=== PATIENT | female | born 1985 | race Caucasian/White ===

== ENCOUNTER 2016-12-16 10:12 | Emergency (ER) | payer MEDICAID, OTHER ==
[~2016-12-16] VITALS: Ht 162.6 cm; Wt 58.0 kg
[~2016-12-16 10:12] MED LIST: ACET1TAB40 PO; IBUP-1542 PO; PNV1CAPS17 PO; PRED20TA PO
[2016-12-16 10:15] VITALS: Ht 162.6 cm; Wt 58.0 kg
[2016-12-16] MEDS ORDERED: SOD CHLORIDE 0.9% 1,000 ML IV STA (11:21)
[2016-12-16] MEDS ORDERED: HYDR25SU23 PR (13:35)
--- NOTE | 2016-12-16 13:36 | ERD ---
ER Documentation Chief Complaint Chief Complaint RECTAL BLEED X 3 DAYS , 10 WEEKS PREG , RT LOWER ABD PAIN HPI Patient is a 31-year-old female with hypertension who presents with rectal bleed. The patient has had a rectal bleed for the past few days. She is 10 weeks . The patient said that she passed out 2 months ago. The symptoms come and go. She denies hemorrhoids. She has pain in her anus. She has had no treatment as of yet. She denies vaginal bleeding or bleeding when she urinates. She is not on blood thinning medicines. She is a Ab2. Upon review of old medical records this is the patient's eighth visit to the ER since 2007. ROS All systems reviewed and are negative except as per history of present illness. Medications Home Meds Active Scripts Hydrocortisone Acetate (Anusol-Hc) 25 Mg Supp.rect, 1 SUPP AK QHS, #12 SUPP.RECT Prov:CHEMA MON MD 12/16/16 Acetaminophen-Codeine* (Acetaminophen-Cod #3*) 300-30 Mg Tab, 1 TAB PO Q4H Y for PAIN, #10 TAB Prov:NASEEM LOPES MD 07/03/15 Ibuprofen* (Motrin*) 600 Mg Tab, 600 MG PO Q6, #14 TAB Prov:NASEEM LOPES MD 07/03/15 Prednisone* (Prednisone*) 20 Mg Tab, 40 MG PO DAILY for 4 Days, TAB Prov:NASEEM LOPES MD 07/03/15 Reported Medications Pnv Comb.no58/Iron Bisgly/Fa ( Capsule) 1 Each Capsule, 1 EACH PO DAILY 05/05/13 Allergies Allergies: Coded Allergies: No Known Drug Allergies (Verified Allergy, Unknown, 07/03/15) PMhx/Soc History of Surgery: No Anesthesia Reaction: No Hx Neurological Disorder: No Hx Respiratory Disorders: No Hx Cardiac Disorders: Yes (HTN) Hx Psychiatric Problems: No Hx Miscellaneous Medical Probl: No Hx Alcohol Use: No Hx Substance Use: No Hx Tobacco Use: Yes Smoking Status: Former smoker FmHx Family History: diabetes Physical Exam Vitals Vital Signs Date Time Temp Pulse Resp B/P Pulse Ox O2 Delivery O2 Flow Rate FiO2 12/16/16 13:45 74 20 104/58 99 Room Air 12/16/16 10:15 98.1 110 18 151/87 99 Physical Exam Const: No acute distress Head: Atraumatic Eyes: Normal Conjunctiva ENT: Normal External Ears, Nose and Mouth. Neck: Full range of motion..~ No meningismus. Resp: Clear to auscultation bilaterally Cardio: Regular rate and rhythm, no murmurs Abd: Soft, non tender, non distended. Normal bowel sounds Skin: No petechiae or rashes Back: No midline or flank tenderness Ext: No cyanosis, or edema Neur: Awake and alert Rectal: No hemorrhoids, no external bleeding, no masses palpated on rectal exam and brown stool without blood Result Diagram: 12/16/16 1230 12/16/16 1230 Results 24 hrs Laboratory Tests Test 12/16/16 12:00 12/16/16 12:30 Urine Color YELLOW Urine Clarity CLOUDY Urine pH 6.0 Urine Specific [place] 1.024 Urine Ketones TRACEmg/dL Urine Nitrite NEGATIVEmg/dL Urine Bilirubin NEGATIVEmg/dL Urine Urobilinogen NEGATIVEmg/dL Urine Leukocyte Esterase NEGATIVELeu/ul Urine Microscopic RBC 2/HPF Urine Microscopic WBC 2/HPF Urine Squamous Epithelial Cells FEW/HPF Urine Bacteria FEW/HPF Urine Mucus MANY/HPF Urine Hemoglobin NEGATIVEmg/dL Urine Glucose NEGATIVEmg/dL Urine Total Protein NEGATIVEmg/dl White Blood Count 16.510^3/ul Red Blood Count 4.2410^6/ul Hemoglobin 12.7g/dl Hematocrit 38.2% Mean Corpuscular Volume 90.1fl Mean Corpuscular Hemoglobin 30.0pg Mean Corpuscular Hemoglobin Concent 33.2g/dl Red Cell Distribution Width 13.1% Platelet Count 25638^3/UL Mean Platelet Volume 10.2fl Neutrophils % 75.9% Lymphocytes % 15.8% Monocytes % 7.0% Eosinophils % 0.5% Basophils % 0.3% Nucleated Red Blood Cells % 0.0/100WBC Neutrophils # 12.510^3/ul Lymphocytes # 2.610^3/ul Monocytes # 1.210^3/ul Eosinophils # 0.110^3/ul Basophils # 0.110^3/ul Nucleated Red Blood Cells # 0.010^3/ul Prothrombin Time 11.8Sec Prothrombin Time Ratio 0.9 INR International Normalized Ratio 0.87 Activated Partial Thromboplast Time 25.3Sec Sodium Level 141mmol/L Potassium Level 3.9mmol/L Chloride Level 104mmol/L Carbon Dioxide Level 26mmol/L Anion Gap 15 Blood Urea Nitrogen 16mg/dl Creatinine 0.72mg/dl Glucose Level 80mg/dl Calcium Level 9.5mg/dl Total Bilirubin 0.3mg/dl Direct Bilirubin 0.00mg/dl Indirect Bilirubin 0.3mg/dl Aspartate Amino Transf (AST/SGOT) 22IU/L Alanine Aminotransferase (ALT/SGPT) 32IU/L Alkaline Phosphatase 52IU/L Troponin I < 0.012ng/ml Total Protein 7.8g/dl Albumin 4.7g/dl Globulin 3.10g/dl Albumin/Globulin Ratio 1.51 Current Medications Medications (Trade) Dose Ordered Sig/Arjun Route PRN Reason Start Time Stop Time Status Last Admin Dose Admin Sodium Chloride (NS) 1,000 ml @ 1,000 mls/hr Q1H STAT IV 12/16/16 11:21 12/16/16 12:20 DC 12/16/16 11:21 Procedures/MDM EKG read by me: Rate/Rhythm: Regular rate and rhythm at a rate of 74 Intervals: Normal Impression: No evidence of ischemia or arrhythmia Patient is a 31-year-old female who presents with rectal bleeding. The patient has a history of hypertension and is with hypertension. However she is only within her first trimester at this point I doubt preeclampsia or eclampsia. The patient has no active bleeding at this time and no blood on her rectal exam. Her hemoglobin is normal. Her other laboratory studies are normal other than a elevated white blood cell count. I believe this is likely from and not from infection at this time. The patient will be discharged but will need to follow-up closely with the women's clinic. She can return for any worsening symptoms. I will give her a prescription for Anusol suppositories as she likely has an anal fissure causing pain. Departure Diagnosis: Primary Impression: Syncope Syncope type: unspecified Qualified Code: R55 - Syncope, unspecified syncope type Additional Impression: Rectal hemorrhage Condition: Fair Patient Instructions: What Is Syncope?, Rectal Bleed, Stable Referrals: [facility] Additional Instructions: Call your primary care doctor TOMORROW for an appointment during the next 1-2 days.See the doctor sooner or return here if your condition worsens before your appointment time. CHEMA MON MD Dec 16, 2016 13:36
[2016-12-16 13:45] VITALS: BP 104/58; PULSE 74; RESP 20
== END 2016-12-16 13:46 | disposition home or self-care (01) ==
LOC: E/R 10:12
DX: K62.5 Hemorrhage of anus and rectum (principal); R55 Syncope and collapse; I10 Essential (primary) hypertension; Z87.891 Personal history of nicotine dependence
CPT/HCPCS: 36415; 80053; 81001; 84484; 85025; 85610; 85730; 93005; J7030; Z7502

== ENCOUNTER 2017-05-08 11:26 | Emergency (ER) | END 2017-05-08 15:08 | disposition home or self-care (01) ==

== ENCOUNTER 2017-05-09 10:30 | Emergency (ER) | END 2017-05-09 12:05 | disposition home or self-care (01) ==